=== PATIENT | female | born 1965 | race American Indian/Alaskan Native ===

== ENCOUNTER 2016-06-11 08:57 | Emergency (ER) | payer BC ==
[2016-06-11 09:06] VITALS: BP 130/81; PULSE 63; RESP 18; TEMP 98.3; O2SAT 96
[2016-06-11 09:18] VITALS: BMI 43.2
--- NOTE | 2016-06-11 09:19 | C.PDOC ---
History Of Present Illness 51 year old patient, with a past medical history hypertension and hypercholesterolemia, presents to the ED complaining of right ear irritation for the past 5 days. Patient states her children were playing with her and put a sarah pin in her ear. Patient denies fever, ear discharge, headache or dizziness. Time Seen by Provider: 06/11/16 09:14 Chief Complaint (Nursing): ENT Problem History Per: Patient History/Exam Limitations: None Onset/Duration Of Symptoms: Days (5) Current Symptoms Are (Timing): Still Present Quality (Ear): Pain W/Touch Symptoms Have Been: Continuous Severity: Mild Pain Scale Rating Of: 3 Past Medical History Reviewed: Historical Data, Nursing Documentation, Vital Signs Vital Signs: Last Vital Signs Temp 98.3 F 06/11/16 09:01 Pulse 63 06/11/16 09:01 Resp 18 06/11/16 09:01 BP 130/81 06/11/16 09:01 Pulse Ox 96 06/11/16 09:19 - Medical History PMH: HTN, Hypercholesterolemia - [employer] Procedures C.A.T. SCAN OF THORAX (08/05/12) CLOSED [PERCUTANEOUS] [NEEDLE] BIOPSY OF LUNG (08/05/12) MASTOTOMY (10/05/14) Family History: States: Unknown Family Hx - Social History Hx Alcohol Use: No Hx Substance Use: No Review Of Systems Except As Marked, All Systems Reviewed And Found Negative. Constitutional: Negative for: Fever ENT: Positive for: Ear Pain (right). Negative for: Ear Discharge Neurological: Negative for: Headache, Dizziness Physical Exam - Physical Exam Appears: Non-toxic, No Acute Distress Skin: Warm, Dry Head: Atraumatic, Normacephalic Eye(s): bilateral: PERRL, EOMI Ear(s): Bilateral: TM Obscured By Wax (TM intact) Nose: Normal Oral Mucosa: Moist Throat: Normal Neck: Normal ROM, Supple Chest: Symmetrical Cardiovascular: Rhythm Regular Respiratory: Normal Breath Sounds, No Rales, No Rhonchi, No Wheezing Back: Normal Inspection Extremity: Normal ROM Neurological/Psych: Oriented x3 ED Course And Treatment O2 Sat by Pulse Oximetry: 96 (RA) Pulse Ox Interpretation: Normal Medical Decision Making Medical Decision Making: R ear wax, no trauma from FB 5 days ago. Debrox educated. Disposition Doctor Will See Patient In The: Office Counseled Patient/Family Regarding: Studies Performed, Diagnosis - Disposition Referrals: Jc Romo MD [Primary Care Provider] - Disposition: HOME/ ROUTINE Disposition Time: 09:19 Condition: GOOD Additional Instructions: Debrox ear drops At night before bed: 3 drops to the R ear Mon/Wed/Fri 3 drops to the L ear Tues/Thurs/Sat Follow-up with your doctor as needed. Instructions: Carbamide Peroxide (Into the ear) - Clinical Impression Clinical Impression: Excessive ear wax - Scribe Statement The provider has reviewed the documentation as recorded by the Tiffanieibtara Mar Provider Attestation: All medical record entries made by the Tiffanieibe were at my direction and personally dictated by me. I have reviewed the chart and agree that the record accurately reflects my personal performance of the history, physical exam, medical decision making, and the department course for this patient. I have also personally directed, reviewed, and agree with the discharge instructions and disposition.
== END 2016-06-11 09:44 | disposition home or self-care (01) ==
LOC: C.ER 08:57 → SUPCPDRO 08:57 → C.ER 09:44
DX: H61.23 Impacted cerumen, bilateral (principal)

== ENCOUNTER 2016-07-20 04:03 | Emergency (ER) | payer BC ==
[2016-07-20 04:03] VITALS: BMI 43.2
--- NOTE | 2016-07-20 04:10 | C.PDOC ---
History Of Present Illness pt presents with right ear pain, decreased hearing worsening over a few days. No f/c/n/v. No dizziness. Denies any trauma. Time Seen by Provider: 07/20/16 04:10 History/Exam Limitations: None Onset/Duration Of Symptoms: Days Current Symptoms Are (Timing): Still Present Quality (Ear): Other (decreased hearing) Anticoagulant/Antiplatlet Use?: No Recent Aspirin Use: No Past Medical History Reviewed: Historical Data, Nursing Documentation, Vital Signs Vital Signs: Last Vital Signs Temp 98.3 F 07/20/16 04:10 Pulse 72 07/20/16 04:10 Resp 16 07/20/16 04:10 BP 140/80 07/20/16 04:10 Pulse Ox 100 07/20/16 04:10 - Medical History PMH: HTN, Hypercholesterolemia Denies: HIV, Chronic Kidney Disease - [employer] Procedures C.A.T. SCAN OF THORAX (08/05/12) CLOSED [PERCUTANEOUS] [NEEDLE] BIOPSY OF LUNG (08/05/12) MASTOTOMY (10/05/14) Family History: States: No Known Family Hx - Social History Hx Alcohol Use: No Hx Substance Use: No - Immunization History Hx Tetanus Toxoid Vaccination: Yes Hx Influenza Vaccination: Yes Hx Pneumococcal Vaccination: Yes Review Of Systems Constitutional: Negative for: Fever, Chills ENT: Positive for: Ear Pain Skin: Negative for: Rash Neurological: Negative for: Weakness Psych: Negative for: Anxiety Physical Exam - Physical Exam Appears: Non-toxic, No Acute Distress Skin: Warm, Dry Ear(s): Right: TM Obscured By Wax Nose: Normal ED Course And Treatment O2 Sat by Pulse Oximetry: 100 Pulse Ox Interpretation: Normal Progress Note: attempted to flush the ear canal without succesfully rmoving the wax plug Reevaluation Time: 04:34 Reassessment Condition: Improved Disposition Counseled Patient/Family Regarding: Studies Performed, Diagnosis, Need For Followup - Disposition Referrals: Joe Patterson MD [Staff Provider] - Disposition: HOME/ ROUTINE Disposition Time: 04:10 Condition: FAIR Instructions: Cerumen Impaction (ED) - Clinical Impression Clinical Impression: Cerumen impaction
[2016-07-20 04:20] VITALS: BP 140/80; PULSE 72; RESP 16; TEMP 98.3; O2SAT 100
== END 2016-07-20 04:42 | disposition home or self-care (01) ==
LOC: C.ER 04:03
DX: H61.21 Impacted cerumen, right ear (principal)

== ENCOUNTER 2017-06-06 10:24 | Emergency (ER) | payer OTHER, BC ==
[2017-06-06 10:24] VITALS: BMI 45.2
[2017-06-06 10:59] VITALS: BP 107/73; PULSE 64; RESP 18; TEMP 97.7; O2SAT 100
[2017-06-06] MEDS ORDERED: Naproxen 550 mg Tab PO STA (11:20)
[2017-06-06] MEDS ORDERED: Naproxen 550 mg Tab PO ONE (11:33)
--- NOTE | 2017-06-06 12:12 | RAD ---
PROCEDURE: Radiographs of the left tibia and fibula. HISTORY: LEFT TIB/FIB PAIN AFTER FALL COMPARISON: None available. TECHNIQUE: Frontal and lateral views obtained. FINDINGS: BONES: No acute fracture or destructive lesion. Bone alignment and mineralization are normal. JOINT SPACES: Unremarkable. OTHER FINDINGS: None. IMPRESSION: No acute fracture.
--- NOTE | 2017-06-06 12:14 | RAD ---
PROCEDURE: Radiographs of the left elbow. HISTORY: LEFT ELBOW PAIN AFTER FALL COMPARISON: No prior. FINDINGS: BONES: Bone alignment and mineralization are normal. There is no acute displaced fracture or bone destruction. JOINTS: Normal. SOFT TISSUES: Normal. JOINT EFFUSION: None. OTHER FINDINGS: None IMPRESSION: No acute fracture or dislocation.
--- NOTE | 2017-06-06 12:16 | RAD ---
PROCEDURE: Left Wrist Radiographs. HISTORY: LEFT WRIST PAIN AFTER FALL COMPARISON: None. FINDINGS: BONES: No acute fracture or bone destruction. Bone alignment and mineralization are normal. JOINTS: The proximal and distal carpal rows are maintained. No dislocation. The joint spaces are preserved. SOFT TISSUES: Normal. OTHER FINDINGS: None. IMPRESSION: No acute fracture or dislocation.
--- NOTE | 2017-06-06 12:20 | RAD ---
PROCEDURE: Radiographs of the Left Shoulder HISTORY: LEFT SHOULDER PAIN COMPARISON: No prior. FINDINGS: BONES: No acute fracture. JOINTS: Unremarkable. SOFT TISSUES: Normal. OTHER FINDINGS: None. IMPRESSION: No demonstrated fracture or dislocation.
--- NOTE | 2017-06-06 12:30 | C.PDOC ---
History Of Present Illness 52 y/o female presents to the ER complaining of left ivey, left wrist, and left elbow pain after she had a mechanical fall at school ( place of work) today. She states that she tripped and fell towards a door. She extended her left arm towards the door and she hit her left arm and left ivey on the door. Patient denies having LOC, head injury, and other complaints. Time Seen by Provider: 06/06/17 10:54 Chief Complaint (Nursing): Trauma History Per: Patient History/Exam Limitations: no limitations Onset/Duration Of Symptoms: Hrs Current Symptoms Are (Timing): Still Present Severity: Moderate Past Medical History Reviewed: Historical Data, Nursing Documentation, Vital Signs Vital Signs: Last Vital Signs Temp 97.7 F 06/06/17 10:54 Pulse 64 06/06/17 10:54 Resp 18 06/06/17 10:54 BP 107/73 06/06/17 10:54 Pulse Ox 100 06/06/17 15:00 - Medical History PMH: HTN, Hypercholesterolemia Denies: HIV, Chronic Kidney Disease Other Surgeries: Hx of surgeries - [employer] Procedures C.A.T. SCAN OF THORAX (08/05/12) CLOSED [PERCUTANEOUS] [NEEDLE] BIOPSY OF LUNG (08/05/12) MASTOTOMY (10/05/14) Family History: States: No Known Family Hx - Social History Hx Alcohol Use: No Hx Substance Use: No - Immunization History Hx Tetanus Toxoid Vaccination: Yes Hx Influenza Vaccination: Yes Hx Pneumococcal Vaccination: Yes Review Of Systems Except As Marked, All Systems Reviewed And Found Negative. Musculoskeletal: Positive for: Other (left ivey, left wrist, and left elbow pain ) Neurological: Negative for: Weakness, Numbness Physical Exam - Physical Exam Appears: Non-toxic, Other (mild pain) Skin: Normal Color, Warm Head: Atraumatic, Normacephalic Eye(s): bilateral: Normal Inspection Nose: Normal Oral Mucosa: Moist Neck: No Midline Cervical Tenderness, Supple Chest: Symmetrical Cardiovascular: Rhythm Regular Respiratory: Normal Breath Sounds, No Rales, No Rhonchi, No Wheezing Extremity: No Normal ROM (decreased ROM in left shoulder secondary to pain), Tenderness (mild tenderness to left upper proximal humerus, left elbow, and left wrist, tenderness to palpation in left ivey), Capillary Refill (< 2 seconds ), No Deformity, No Swelling Neurological/Psych: Oriented x3, Normal Speech ED Course And Treatment O2 Sat by Pulse Oximetry: 100 (RA) Pulse Ox Interpretation: Normal - Other Rad X-Ray- Left Shoulder X-Ray: Viewed By Me, Read By Radiologist Interpretation: PROCEDURE: Radiographs of the Left Shoulder. HISTORY: LEFT SHOULDER PAIN. COMPARISON: No prior. FINDINGS: BONES: No acute fracture. JOINTS: Unremarkable. SOFT TISSUES: Normal. OTHER FINDINGS: None. IMPRESSION: No demonstrated fracture or dislocation. X-Ray- Left Tibia, Fibula X-Ray: Viewed By Me, Read By Radiologist Interpretation: PROCEDURE: Radiographs of the left tibia and fibula. HISTORY: LEFT TIB/FIB PAIN AFTER FALL. COMPARISON: None available. TECHNIQUE: Frontal and lateral views obtained. FINDINGS: BONES: No acute fracture or destructive lesion. Bone alignment and mineralization are normal. JOINT SPACES : Unremarkable. OTHER FINDINGS: None. IMPRESSION: No acute fracture. X-Ray-Left Elbow X-Ray: Viewed By Me, Read By Radiologist Interpretation: PROCEDURE: Radiographs of the left elbow. HISTORY: LEFT ELBOW PAIN AFTER FALL. COMPARISON: No prior. FINDINGS: BONES: Bone alignment and mineralization are normal. There is no acute displaced fracture or bone destruction. JOINTS: Normal. SOFT TISSUES: Normal. JOINT EFFUSION: None. OTHER FINDINGS: None. IMPRESSION: No acute fracture or dislocation. X-Ray- Left Wrist X-Ray: Viewed By Me, Read By Radiologist Interpretation: PROCEDURE: Left Wrist Radiographs. . HISTORY: LEFT WRIST PAIN AFTER FALL. COMPARISON: None. FINDINGS: BONES: No acute fracture or bone destruction. Bone alignment and mineralization are normal. JOINTS: The proximal and distal carpal rows are maintained. No dislocation. The joint spaces are preserved. SOFT TISSUES: Normal. OTHER FINDINGS: None. IMPRESSION: No acute fracture or dislocation. Progress Note: Patient has been given Naproxen PO. X-Rays are negative.Patient has been discharged and instructed to follow up with orthopedics within 1 week. Disposition Counseled Patient/Family Regarding: Studies Performed, Diagnosis, Need For Followup, Rx Given - Disposition Referrals: Jc Romo MD [Medical Doctor] - Samantha Richards MD [Staff Provider] - Disposition: HOME/ ROUTINE Disposition Time: 12:30 Condition: STABLE Additional Instructions: FOLLOW UP WITH ORTHOPEDICS WITHIN 1 WEEK USE MEDICATIONS NEEDED RETURN TO ER IF SYMPTOMS WORSEN Prescriptions: Cyclobenzaprine [Flexeril] 10 mg PO BID PRN #15 tab PRN Reason: Muscle Spasm Naproxen 375 mg PO BID PRN #20 tablet PRN Reason: pain Instructions: Wrist Sprain (DC), Shoulder Sprain (DC), Elbow Sprain (DC) Forms: [employer] (French) Print Language: SYRIAC - POA Present On Arrival: Falls Or Trauma - Clinical Impression Clinical Impression: Sprain of upper arm, left, Injury of left ivey, Left wrist sprain - Scribe Statement The provider has reviewed the documentation as recorded by the Noe Graff Provider Attestation: All medical record entries made by the Noe were at my direction and personally dictated by me. I have reviewed the chart and agree that the record accurately reflects my personal performance of the history, physical exam, medical decision making, and the department course for this patient. I have also personally directed, reviewed, and agree with the discharge instructions and disposition.
== END 2017-06-06 12:43 | disposition home or self-care (01) ==
LOC: C.ER 10:24
DX: S63.502A Unspecified sprain of left wrist, initial encounter (principal); S89.92XA Unspecified injury of left lower leg, initial encounter; W01.198A Fall on same level from slipping, tripping and stumbling with subsequent striking against other object, initial encounter; Y92.219 Unspecified school as the place of occurrence of the external cause; Y99.0 Civilian activity done for income or pay

== ENCOUNTER 2018-03-14 01:48 | Emergency (ER) | payer BC ==
[2018-03-14 01:49] VITALS: BMI 45.2
--- NOTE | 2018-03-14 02:21 | C.PDOC ---
History Of Present Illness 52 year old female s/p laparoscopic gastric bypass at [place] 3 days ago and discharged yesterday presents today stating she was going to shower and accidentally pulled the packing out of the surgical site and began bleeding. Patient reports feeling sore from the surgery but otherwise denies fever, dizziness, lightheadedness, SOB, or abdominal pain. Time Seen by Provider: 03/14/18 01:56 Chief Complaint (Nursing): Abnormal Skin Integrity History Per: Patient History/Exam Limitations: no limitations Onset/Duration Of Symptoms: Hrs Current Symptoms Are (Timing): Still Present Location Of Injury: Anterior: Abdomen Recent travel outside of the [place]: No Past Medical History Reviewed: Historical Data, Nursing Documentation, Vital Signs Vital Signs: Last Vital Signs Temp 100 F H 03/14/18 02:03 Pulse 96 H 03/14/18 02:03 Resp 20 03/14/18 02:03 BP 119/71 03/14/18 02:03 Pulse Ox 98 03/14/18 02:03 - Medical History PMH: HTN, Hypercholesterolemia Denies: HIV, Chronic Kidney Disease - [employer] Procedures C.A.T. SCAN OF THORAX (08/05/12) CLOSED [PERCUTANEOUS] [NEEDLE] BIOPSY OF LUNG (08/05/12) MASTOTOMY (10/05/14) Family History: States: Unknown Family Hx - Social History Hx Alcohol Use: No Hx Substance Use: No - Immunization History Hx Tetanus Toxoid Vaccination: Yes Hx Influenza Vaccination: Yes Hx Pneumococcal Vaccination: Yes Review Of Systems Constitutional: Negative for: Fever, Chills Cardiovascular: Negative for: Light Headedness Respiratory: Negative for: Cough, Shortness of Breath Gastrointestinal: Negative for: Nausea, Vomiting, Abdominal Pain Skin: Positive for: Other (Bleeding from surgical site) Neurological: Negative for: Weakness, Numbness, Dizziness Physical Exam - Physical Exam Appears: Non-toxic Skin: Warm, Dry, No Pale Head: Atraumatic, Normacephalic Eye(s): bilateral: Normal Inspection Oral Mucosa: Moist Neck: Normal, Supple Chest: Symmetrical, No Tenderness Cardiovascular: Rhythm Regular Respiratory: Normal Breath Sounds, No Rales, No Rhonchi, No Wheezing Gastrointestinal/Abdominal: Soft, No Tenderness, Other (Morbidly obese, four healing incisions, one 4cm open incision with large amount of active bleeding) Back: No CVA Tenderness Neurological/Psych: Oriented x3, Normal Speech Gait: Steady ED Course And Treatment - Laboratory Results Result Diagrams: 03/14/18 03:43 O2 Sat by Pulse Oximetry: 98 (Room air) Pulse Ox Interpretation: Normal Medical Decision Making Medical Decision Making: Patient placed on alarm security or surveillance monitor. Spoke with Dr. Thurston who is covering for Dr. Vlilanueva, the patient's bariatric surgeon, who recommended cbc and if results are within normal limits to have patient follow up at their bariatric clinic in the morning at 0800. In re-exam, the patient is resting comfortably. Lungs are CTA, heart is RRR, patient is ambulatory in the ED with steady gait. Disposition - Disposition Disposition: HOME/ ROUTINE Disposition Time: 03:51 Condition: GOOD Additional Instructions: You must go to the Bariatric Surgery clinic today at 7am. Instructions: Postop pain (ED) Forms: [employer] (Lithuanian) - Clinical Impression Clinical Impression: Post-op bleeding - PA / CORPORATE INTERN / Resident Statement MD/DO has reviewed & agrees with the documentation as recorded. - Scribe Statement The provider has reviewed the documentation as recorded by the Scribtara Snider All medical record entries made by the Tiffanieibtara were at my direction and personally dictated by me. I have reviewed the chart and agree that the record accurately reflects my personal performance of the history, physical exam, medical decision making, and the department course for this patient. I have also personally directed, reviewed, and agree with the discharge instructions and disposition.
[2018-03-14 03:33] VITALS: BP 138/77; PULSE 93; RESP 16; TEMP 97.7
[2018-03-14 03:46] LABS: HEMOGLOBIN 11.8 g/dL (11.0-16.0); MEAN CELL VOLUME 84.7 fL (81.0-99.0); MEAN CORPUSCULAR HEMOGLOBIN 28.1 pg (27.0-31.0); MEAN CORPUSCULAR HGB CONC 33.1 g/dL (33.0-37.0); MEAN PLATELET VOLUME 7.4 fL (7.2-11.7); RBC 4.21 Mil/uL (3.80-5.20); RED CELL DISTRIBUTION WIDTH 13.1 % (11.5-14.5); WHITE BLOOD COUNT 10.2 K/uL (4.8-10.8)
[2018-03-14 03:52] VITALS: O2SAT 98
== END 2018-03-14 03:59 | disposition home or self-care (01) ==
LOC: C.ER 01:48
DX: L76.22 Postprocedural hemorrhage of skin and subcutaneous tissue following other procedure (principal); E78.00 Pure hypercholesterolemia, unspecified; I10 Essential (primary) hypertension; Z98.84 Bariatric surgery status

== ENCOUNTER 2018-06-15 07:56 | Outpatient (CLI) | payer BC | END 2018-06-15 07:57 | disposition home or self-care (01) | LOC: C.MAMMO 07:56 | DX: Z12.31 Encounter for screening mammogram for malignant neoplasm of breast (principal) ==